=== PATIENT | female | born 1965 | race Caucasian/White ===

== ENCOUNTER 2018-03-27 00:21 | Emergency (ER) | payer SELFPAY ==
[~2018-03-27] VITALS: Wt 72.0 kg
[2018-03-27 00:25] VITALS: BP 143/75; PULSE 78; RESP 16
[2018-03-27] MEDS ORDERED: KETOROLAC 60 MG INJ IM STA (03:16)
[2018-03-27] MEDS ORDERED: ERYT1OIN6 BOTH EYES (03:18)
[2018-03-27] MEDS ORDERED: TETRACAINE 0.5% 4 ML OPH BOTH EYES ONE (03:30)
--- NOTE | 2018-03-27 03:43 | ERD ---
ER Documentation Chief Complaint Chief Complaint bilat eye redness+ pain x1d; p eyelash extensions yesterday. HPI This is a 52-year-old female comes in with bilateral eye redness and pain for 1 day. She status post I last extensors. She said he used a retractor for lower eyelid since then she has been getting increasingly painful and red. Denies fevers chills nausea vomiting or direct trauma. Denies any visual acuity changes. ROS All systems reviewed and are negative except as per history of present illness. Medications Home Meds Active Scripts Erythromycin Base (Erythromycin) 1 Gm Oint...g., 1 APPLIC BOTH EYES QID for 7 Days Prov:JIMMIE PULIDO 03/27/18 Allergies Allergies: Coded Allergies: Amoxicillin (Verified Allergy, Unknown, rash, 01/27/14) No Known Drug Allergy (Verified Allergy, Unknown, 04/29/10) PMhx/Soc History of Surgery: Yes (, ectopic, breast augmentation, breast cyst, biopsies) Hx Neurological Disorder: No Hx Respiratory Disorders: No Hx Cardiac Disorders: No Hx Psychiatric Problems: No Hx Miscellaneous Medical Probl: Yes (lymphoma) Hx Alcohol Use: No Hx Substance Use: No Hx Tobacco Use: No Smoking Status: Never smoker Physical Exam Vitals Vital Signs Date Temp Pulse Resp B/P (MAP) Pulse Ox O2 O2 Flow FiO2 Time Delivery Rate 03/27/18 95.6 78 16 143/75 97 00:25 (97) Physical Exam Const: No acute distress Head: Atraumatic Eyes: Normal Conjunctiva ENT: Normal External Ears, Nose and Mouth. Neck: Full range of motion. No meningismus. Resp: Clear to auscultation bilaterally Cardio: Regular rate and rhythm, no murmurs Abd: Soft, non tender, non distended. Normal bowel sounds Skin: No petechiae or rashes Back: No midline or flank tenderness Ext: No cyanosis, or edema Neur: Awake and alert Psych: Normal Mood and Affect Results 24 hrs Current Medications Medications Dose Sig/Mahad Start Time Status Last (Trade) Ordered Route PRN Stop Time Admin Dose Reason Admin Ketorolac 60 mg ONCE STAT 03/27/18 DC Tromethamine IM 03:16 (Toradol) 03/27/18 03:17 Procedures/MDM Emergency room course: Patient seen and evaluated. Given Toradol intramuscularly for pain. Tetracaine eyedrops applied. Fluorescein stain uptake shows a corneal abrasion at the 6 o'clock position in bilateral eyes. Negative perforation or RIZWANA sign Medical decision make: Patient with bilateral corneal abrasions secondary to instrumentation. At this point clinically stable for outpatient management. Discharged with erythromycin ophthalmic ointment. Follow-up with PCP. Return for worsening symptoms. Follow-up with outpatient ophthalmology. Departure Diagnosis: Primary Impression: Eye injury Encounter type: initial encounter Laterality: bilateral Qualified Codes: S05.91XA - Unspecified injury of right eye and orbit, initial encounter; S05.92XA - Unspecified injury of left eye and orbit, initial encounter Additional Impressions: Pain in eye Laterality: bilateral Qualified Codes: H57.13 - Ocular pain, bilateral Corneal abrasion Encounter type: initial encounter Laterality: unspecified laterality Qualified Codes: S05.00XA - Injury of conjunctiva and corneal abrasion without foreign body, unspecified eye, initial encounter Corneal abrasion of both eyes Encounter type: initial encounter Qualified Codes: S05.01XA - Injury of conjunctiva and corneal abrasion without foreign body, right eye, initial encounter; S05.02XA - Injury of conjunctiva and corneal abrasion without foreign body, left eye, initial encounter Condition: Fair Patient Instructions: Corneal Abrasion JIMMIE PULIDO Mar 27, 2018 03:43
== END 2018-03-27 03:43 | disposition home or self-care (01) ==
LOC: E/R 00:21
DX: S05.91XA Unspecified injury of right eye and orbit, initial encounter (principal); S05.92XA Unspecified injury of left eye and orbit, initial encounter; S05.01XA Injury of conjunctiva and corneal abrasion without foreign body, right eye, initial encounter; S05.02XA Injury of conjunctiva and corneal abrasion without foreign body, left eye, initial encounter; X58.XXXA Exposure to other specified factors, initial encounter; Y92.9 Unspecified place or not applicable
CPT/HCPCS: 96372; 99284; J1885